=== PATIENT | male | born 1985 | race Caucasian/White ===

== ENCOUNTER 2020-08-07 17:32 | Emergency (ER) | payer OTHER ==
--- NOTE | 2020-08-07 17:55 | EDM.PDOC ---
ED HPI GENERAL MEDICAL PROBLEM - General Chief Complaint: Lower Extremity Injury/Pain Stated Complaint: RT FOOT INJURY Time Seen by Provider: 08/07/20 17:44 Source of Information: Reports: Patient, RN Notes Reviewed History Limitations: Reports: No Limitations - History of Present Illness INITIAL COMMENTS - FREE TEXT/NARRATIVE: Patient is a 34-year-old male who presents to the ER for the evaluation of his right foot/heel injury. Patient notes that he had a good workout earlier today, and he went to jump on his foot, landed on his heel a little bit harder than normal, and felt some pain in it, and he try to walk this off and get through it however he notes that he is not been able to bear much weight on the leg at all due to the pain in the heel. He is not sure if this is more of an ankle injury or heel injury but has pain in that region. Is not having any numbness or tingling distal to the injury, and can move his knee and hip without difficulty. There is some swelling to the medial aspect of the patient's foot. He did not take any sort of pain medications prior to coming to the ER. Patient denies any other sick-like symptoms, fever/chills, cough/shortness of breath, nausea/vomiting/diarrhea. Left Feet Pain Score (Numeric/FACES): 5 - Related Data Allergies Allergy/AdvReac Type Severity Reaction Status Date / Time No Known Allergies Allergy Verified 08/07/20 17:46 Home Meds: Home Meds oxyCODONE HCl/Acetaminophen [Oxycodone-Acetaminophen 5-325] 1 tab PO Q6H PRN #10 tablet 08/07/20 [Rx] Past Medical History - Past Surgical History GI Surgical History: Reports: Appendectomy Social & Family History - Tobacco Use Tobacco Use Status *Q: Never Tobacco User Second Hand Smoke Exposure: No - Recreational Drug Use Recreational Drug Use: No Review of Systems - Review of Systems Review Of Systems: Comprehensive ROS is negative, except as noted in HPI. ED EXAM, GENERAL - Physical Exam Exam: See Below Exam Limited By: No Limitations General Appearance: Alert, WD/WN, No Apparent Distress Respiratory/Chest: No Respiratory Distress, Lungs Clear, Normal Breath Sounds, No Accessory Muscle Use, Chest Non-Tender Cardiovascular: Normal Peripheral Pulses, Regular Rate, Rhythm, No Edema Peripheral Pulses: 2+: Radial (L), Radial (R), Dorsalis Pedis (L), Dorsalis Pedis (R) Extremities: Normal Inspection, Normal Capillary Refill, Pedal Edema (very slight swelling to Right medial foot), Limited Range of Motion (of right foot/ankle d/t pain) Neurological: Alert, Oriented, Normal Cognition, No Motor/Sensory Deficits Psychiatric: Normal Affect, Normal Mood Skin Exam: Warm, Dry, Intact, Normal Color, No Rash Course - Vital Signs Last Recorded V/S: Last Vital Signs Temp 97.4 F 08/07/20 17:45 Pulse 80 08/07/20 17:45 Resp 16 08/07/20 17:45 BP 143/94 H 08/07/20 17:45 Pulse Ox 95 08/07/20 17:45 - Orders/Labs/Meds Orders: Active Orders 24 hr Category Date Time Status Foot Comp Min 3V Rt [CR] Stat Exams 08/07/20 17:45 Taken DME for Discharge [COMM] Routine Oth 08/07/20 18:50 Ordered Meds: Medications Discontinued Medications Generic Name Dose Route Start Last Admin Trade Name Андрей PRN Reason Stop Dose Admin Oxycodone/Acetaminophen 1 tab 08/07/20 18:48 08/07/20 18:52 Acetaminophen/Oxycodone 325-5 Mg Tab PO 08/07/20 18:49 1 tab ONETIME ONE Administration - Re-Assessments/Exams Free Text/Narrative Re-Assessment/Exam: 08/07/20 17:54 Patient presents to the ER for the evaluation of his foot/heel injury, for today's purposes we will go ahead and get x-rays of the area for evaluation. Patient is not requesting pain medication at this time. 08/07/20 18:51 The patient's foot x-rays have been done, and reviewed by myself and Dr. Kent, he cannot visualize any acute fractures at this time however patient still not able to bear weight and is having quite a bit of pain we will place him in a walking boot, given crutches to remain nonweightbearing to prevent further injury and/or stabilize the injury. Departure - Departure Time of Disposition: 18:52 Disposition: Home, Self-Care 01 Condition: Good Clinical Impression: Pain in right ankle and joints of right foot - Discharge Information *PRESCRIPTION DRUG MONITORING PROGRAM REVIEWED*: Yes *COPY OF PRESCRIPTION DRUG MONITORING REPORT IN PATIENT ADITI: No Prescriptions: oxyCODONE HCl/Acetaminophen [Oxycodone-Acetaminophen 5-325] 1 tab PO Q6H PRN #10 tablet PRN Reason: Pain Instructions: Crutch Use, Adult, [id number] Referrals: PCP,None [Primary Care Provider] - Forms: ED Department Discharge, ED Return to Work/School Form Additional Instructions: You have been evaluated in the ED for your right foot injury. Your x-ray demonstrated no obvious acute fracture or other bony abnormalities. Please use ice as tolerated to the affected area. Please try to elevate the affected area to relieve swelling. You have been provided with a brace, to prevent further injury and/or stabilize the injury you received today. You may take Tylenol 500 mg or ibuprofen 600mg q6 hrs for pain relief. Please do so until you have a tolerable level of pain with activity. Do not exceed 4000mg Tylenol or 3200mg ibuprofen in a 24 hour time period. You were given a prescription for a strong pain medication, oxycodone/acetaminophen 5/325 mg, please take 1 tab every 6 hours as needed for pain not relieved by Tylenol or ibuprofen alone. Please note this medication does contain Tylenol in it, so do not take more than 4000 mg in a 24-hour time span. These medications can be addictive, so please take as few as possible to achieve adequate pain control. These meds can also be quite constipating, recommend that you increase your oral fluid intake and take a stool softener like MiraLAX while taking these medications. Do not drive while taking this med ication. This medication was electronically sent to the [place] [facility] located [facility] the [facility]. Recommend you call Dr. Lauren, our orthopedic surgeon/specialist to obtain an appointment for follow-up for your foot injury, his office number [phone]. This again would be for reexamination of your injury to make sure that everything is getting better as expected, this can be 1 week to [address] if needed. Please return to ED if your symptoms should change or worsen. Sepsis Event Note (ED) - Evaluation Sepsis Screening Result: No Definite Risk - Focused Exam Vital Signs: Vital Signs Temp Pulse Resp BP Pulse Ox 08/07/20 17:45 97.4 F 80 16 143/94 H 95 - My Orders Last 24 Hours: My Active Orders 08/07/20 17:45 Foot Comp Min 3V Rt [CR] Stat 08/07/20 18:50 DME for Discharge [COMM] Routine - Assessment/Plan Last 24 Hours: My Active Orders 08/07/20 17:45 Foot Comp Min 3V Rt [CR] Stat 08/07/20 18:50 DME for Discharge [COMM] Routine
[2020-08-07] MEDS ORDERED: Acetaminophen/oxyCODONE 325-5 MG Tab PO ONE (18:48)
--- NOTE | 2020-08-08 06:40 | CR ---
Right foot: 4 views of the right foot were obtained. Comparison: No prior foot exam is available. Joint spaces are preserved. No acute fracture, dislocation or other bony abnormality is appreciated. Impression: 1. No abnormality is identified on right foot exam. Diagnostic code #1
== END 2020-08-07 19:23 | disposition home or self-care (01) ==
LOC: JD.ED 17:32
DX: M25.571 Pain in right ankle and joints of right foot (principal)
CPT/HCPCS: 73630; 99283; A9270